=== PATIENT | female | born 1975 | race Caucasian/White ===

== ENCOUNTER 2020-12-19 09:20 | Emergency (ER) | payer BC, SELFPAY ==
[2020-12-19 09:29] VITALS: BP 138/87; PULSE 73; RESP 18; TEMP 37.1; O2SAT 97; BMI 27.4
--- NOTE | 2020-12-19 09:48 | USCV_ITS ---
Maria Esther Delcid Age: 45 Gender: F : 1975 Exam Date: 12/19/2020 09:19 Ordering Phys: Pankaj Narayanan Technologist: Madeleine Lovelace Exam Location: [facility] – [place] Indication: CALF PAIN POST TRAVEL HISTORY: Calf tenderness post travel PROCEDURES: Venous duplex imaging was performed in only the right lower extremity. The following venous structures were evaluated: common femoral vein, profunda vein, proximal portion of the greater saphenous vein, superficial femoral vein, and the popliteal vein. In addition, the posterior tibial and peroneal trunk were evaluated. Serial compression, augmentation maneuvers, and spectral Doppler flow evaluation were performed. FINDINGS: DVT noted Rt. Peroneal vein. Echogenic lesion was noted in the peroneal vein. CONCLUSIONS Features suggestive of deep vein thrombosis involving the peroneal vein, on the right side. No DVT in the other above-mentioned veins corrrected copy of the study from 12/19/2020 Dr Darion Spicer MD [facility] (Electronically Signed) Final Date: 19 December 2020 16:05 Amended: 20 December 2020 09:05 C
--- NOTE | 2020-12-19 09:49 | ED_ITS ---
HPI - Extremity Problem General: Chief complaint: Extremity Problem,Nontraumatic Stated complaint: poss blood clot RLE History of Present Illness: HPI Narrative: Patient complains about right calf pain. Was sent here from [facility] urgent care for rule out DVT right calf. Provider said she had positive Homans' sign patient said she has been having right calf pain developing over the last week or so. States she had a do a [address] to get to her's house yesterday. And an hour drive to get here. And she said her pain is worse now in her calf. Has no history of DVT or clotting disorders. Does have a history of hypertension. Denies any other health history does not take any aspirin or blood thinners. MD Complaint: extremity pain and extremity swelling Onset (ago): day(s) Pain Consistency: constant Location: right and lower extremity Severity scale (1-10): 4 Quality: aching Radiation: proximal Relieving factors: immobilization Exacerbating factors: range of motion and weight bearing Associated symptoms: Reports no associated symptoms; Deny chest pain, fever(s) or rash Context: recent travel Review of Systems Const: Denies: fever(s), chills or body aches Eyes: Denies: change in vision or blurry vision ENMT: Denies: throat pain or nasal congestion Card: Denies: chest pain or dyspnea on exertion Resp: Denies: dyspnea, productive cough or non-productive cough GI: Denies: abdominal pain, nausea or vomiting Musc: Reports: extremity pain (Slowly developing worsening right calf pain) Skin/Breast: Denies: rash Neuro: Denies: headache(s) Psych: Denies: anxiety or depression Norberto/Lymph: Denies: easy bruising Physical Exam Const: COMMON NORMALS: no acute distress, average body habitus and patient oriented x3 HENMT: COMMON NORMALS: normocephalic HEAD & SCALP: normal to inspection and normocephalic FACE & SINUS: normal facial exam Eye: COMMON NORMALS: conjunctivae normal GENERAL EYE: appearance normal, both eyes and all related structures CONJUNCTIVA: Yes conjunctivae normal Neck/C-Spine: COMMON NORMALS: no JVD Chest: COMMONS NORMALS: normal inspection of the chest Resp: COMMON NORMALS: normal respiratory effort and clear to auscultation bilaterally AUSCULTATION: clear to auscultation bilaterally Cardio: COMMON NORMALS: no JVD, regular rate and regular rhythm RATE: regular rate RHYTHM: regular rhythm GI: COMMON NORMALS: Normal to inspection, nondistended, normoactive bowel sounds present Extremity: COMMON NORMALS: full ROM; negative for no calf tenderness RIGHT LOWER EXTREMITY: Yes lower leg (Calf tenderness mid calf with pain rating up to the knee positive Homans) Right lower leg: Yes inspection (No swelling redness or erythema noted), Yes palpation (Tender), Yes neurovascular exam (Intact) and Yes special tests Right lower leg special tests: Oralia's sign: Positive Neuro: COMMON NORMALS: patient oriented x3 Course Vital Signs: Vital signs: Vital Signs Temperature 98.7 F 12/19/20 09:29 Pulse Rate 83 12/19/20 11:06 Respiratory Rate 18 12/19/20 11:06 Blood Pressure 133/84 12/19/20 11:06 Pulse Oximetry 98 12/19/20 11:06 MDM - Extremity (Nontraumatic) MDM Narrative: Medical decision making narrative: Discussed case with Dr. Perry. Shared results of ultrasound findings. Plan of care discussed and approved and patient will follow-up primary care provider when she gets back home. Patient is aware that she is at risk for stroke pulmonary embolus are even if she does not get prescriptions filled startles medication as directed. Lab Data: Labs: Lab Results 12/19/20 12/19/20 12/19/20 Range/Units 09:55 09:55 09:55 WBC 7.9 (4.0-10.0) 10^3/ uL RBC 4.82 (4.1-5.3) 10^6/u L Hgb 13.6 (11.5-15.3) g/dL Hct 40.7 (37.0-47.0) % MCV 84.4 (81-99) fL MCH 28.2 (28.0-34.0) pg MCHC 33.4 (30.0-36.0) g/dL RDW 11.6 L (12.1-15.1) % Plt Count 243 (130-400) 10^3/c mm MPV 10.8 H (7.4-10.4) fL Neut % (Auto) 58.5 % Lymph % (Auto) 29.6 % [place] % (Auto) 7.4 % Eos % (Auto) 3.8 % Baso % (Auto) 0.4 % Neut # (Auto) 4.65 (1.8-7.7) 10^3/u L Lymph # (Auto) 2.4 (0.8-4.8) 10^3/u L [place] # (Auto) 0.6 (0.2-0.9) 10^3/u L Eos # (Auto) 0.3 (0.0-0.8) 10^3/u L Baso # (Auto) 0.0 (0.0-0.1) 10^3/u L Nucleated RBC % (a uto) 0 % Nucleated RBCs # 0.0 /100WBC PT 14.50 (12.1-14.9) SECO NDS INR 1.10 (0.8-1.2) Sodium 135 L (136-145) mmol/L Potassium 4.0 (3.5-5.1) mmol/L Chloride 99 (98-107) mmol/L Carbon Dioxide 27 (22-29) mmol/L Anion Gap 13.0 (5-19) BUN 11 (6-20) mg/dL Creatinine 0.5 (0.5-0.9) mg/dL GFR Calculation 132.2 H (90-130) mL/min Glucose 84 (65-115) mg/dL Calculated Osmolal ity 279 L (285-295) mOsm/k g Calcium 9.6 (8.5-10.5) mg/dL Discharge Plan Discharge Patient Disposition: Home Clinical Impression: DVT of axillary vein, acute right Condition: Stable Prescriptions: [place] DVT-PE Treat 30D Start 5 mg (74 tabs) tablets,dose pack See Rx Instructions .ROUTE .COMPLEX Qty: 74 RF: 0 No Action metoprolol tartrate 100 mg tablet 100 mg PO DAILY@20 RF: 0 liothyronine 25 mcg tablet See Rx Instructions .ROUTE .COMPLEX RF: 0 ibuprofen 200 mg Tablet 400 mg PO PRN RF: 0 olmesartan 20 mg tablet 10 mg PO DAILY@07 RF: 0 Vitamin D3 125 mcg (5,000 unit) Tablet See Rx Instructions .ROUTE .COMPLEX RF: 0 Triple Magnesium Complex 400 mg magnesium Capsule 400 mg PO DAILY@12 RF: 0 Methylcobalamin B12 See Rx Instructions .ROUTE .COMPLEX RF: 0 Discharge Orders: Discharge ED (Routine); Ordered 12/19/20 Ordered By: Pankaj Narayanan Discharge Diet: Usual diet Discharge Activity: Increase activity as tolerated Patient Instructions: Deep Venous Thrombosis (ED) Activity Restrictions/Additional Instructions: Follow-up with medical provider as directed. Take medications as prescribed. Return to the ER or your medical provider if condition worsens. Please read and understand discharge instructions. If any questions ask please. If you do have to go drive any significant distance you need to make sure you take frequent breaks and walk. OR keep your leg straightened and and ride as a passenger Coding Level of Care Code ED Lighting Adviser for Chg Fwd Exam Comprehensive
[2020-12-19 09:59] VITALS: BP 124/44; PULSE 74; RESP 18; O2SAT 99
[2020-12-19 10:10] LABS: Basophils % 0.4 %; Eosinophils # 0.3 10^3/uL (0.0-0.8); Eosinophils % 3.8 %; Hematocrit 40.7 % (37.0-47.0); Hemoglobin 13.6 g/dL (11.5-15.3); Lymphocytes # 2.4 10^3/uL (0.8-4.8); Lymphocytes % 29.6 %; Mean Corpuscular HGB Conc 33.4 g/dL (30.0-36.0); Mean Corpuscular Hemoglobin 28.2 pg (28.0-34.0); Mean Corpuscular Volume 84.4 fL (81-99); Mean Platelet Volume 10.8 fL (7.4-10.4); Monocytes # 0.6 10^3/uL (0.2-0.9); Monocytes % 7.4 %; Neutrophils # 4.65 10^3/uL (1.8-7.7); Neutrophils % 58.5 %; Nucleated Red Blood Cells % 0 %; Platelet Count 243 10^3/cmm (130-400); Red Blood Count 4.82 10^6/uL (4.1-5.3); Red Cell Distribution Width 11.6 % (12.1-15.1); White Blood Count 7.9 10^3/uL (4.0-10.0)
[2020-12-19 10:21] LABS: Blood Urea Nitrogen 11 mg/dL (6-20); Calcium 9.6 mg/dL (8.5-10.5); Carbon Dioxide 27 mmol/L (22-29); Chloride 99 mmol/L (98-107); Glomerular Filtration Rate 132.2 mL/min (90-130); Glucose 84 mg/dL (65-115); Osmolality Calculated 279 mOsm/kg (285-295); Sodium 135 mmol/L (136-145)
[2020-12-19] MEDS: enoxaparin 80 mg/0.8 mL Syringe 70 MG SUBCUT (11:01)
[2020-12-19 11:06] VITALS: BP 133/84; PULSE 83; RESP 18; O2SAT 98
== END 2020-12-19 11:07 | disposition home or self-care (01) ==
PROVIDERS: Emergency Provider Nurse Practitioner Family
DX: I82.451 Acute embolism and thrombosis of right peroneal vein (principal)
CPT/HCPCS: 80048; 85025; 85610; 93971; 96372; 99283; J1650